=== PATIENT | male | born 1985 | race Caucasian/White ===

== ENCOUNTER 2017-01-02 16:40 | Emergency (ER) | payer OTHER ==
--- NOTE | 2017-01-02 16:56 | PDOC ---
History of Present Illness - General History Source: Patient Exam Limitations: No Limitations - History of Present Illness Initial Comments: 01/02/17 17:16 The patient is a 31 year old male, with no significant past medical history who presents to the emergency department with right elbow pain and abscess over elbow since Saturday. The patient reports going to his PCP, on Saturday, who have him antibiotics, Keflex. He reports his pain and the abscess only worsened since taking the Keflex. He notes having some drainage from his elbow yesterday that started spontaneously. He denies any limited ROM of his elbow. He denies any UE numbness and tingling. He denies any trauma or injury to his right elbow. He denies any previous cut/scratch to his elbow. He denies any recent fevers, chills, headache or dizziness. He denies any recent nausea, vomit, diarrhea or constipation. Allergies: NKA Past surgical history: None reported. Social History: Nonsmoker. Denies EtOH use and recreational drug use. Primary Care Physician: <Mekhi Mir - Last Filed: 01/02/17 17:38> - General History Source: Patient Exam Limitations: No Limitations <Juliet Vargas - Last Filed: 01/04/17 18:19> - General Chief Complaint: Wound Stated Complaint: RT ELBOW ABCESS SWELLING Time Seen by Provider: 01/02/17 16:42 Past History <Mekhi Mir - Last Filed: 01/02/17 17:38> <Juliet Vargas - Last Filed: 01/04/17 18:19> - Past Medical History Allergies/Adverse Reactions: Allergies Allergy/AdvReac Type Severity Reaction Status Date / Time shrimp Allergy Mild Rash Verified 01/02/17 17:45 Home Medications: Ambulatory Orders Clindamycin [Cleocin -] 300 mg PO Q6HPO #28 capsule 01/02/17 Review of Systems - Review of Systems Able to Perform ROS?: Yes Comments:: 01/02/17 17:16 GENERAL/CONSTITUTIONAL: No: fever, chills, weakness, loss of appetite. HEAD, EYES, EARS, NOSE AND THROAT: No: change in vision, ear pain, discharge, sore throat, throat swelling. CARDIOVASCULAR: No: chest pain, lightheadedness, palpitations, syncope RESPIRATORY: No: cough, shortness of breath, wheezing, hemoptysis, stridor. GASTROINTESTINAL: No: nausea, vomiting, diarrhea, abdominal cramping, rectal bleeding, constipation. GENITOURINARY: No: dysuria, hematuria, frequency, urgency, flank pain. MUSCULOSKELETAL: +right elbow abscess and pain. No: back pain, neck pain, joint pain, muscle swelling or pain SKIN : No: lesions, pallor, rash or easy bruising. NEUROLOGIC: No: headache, vertigo, paresthesias, weakness ENDOCRINE: No: unexplained weight gain or loss HEMATOLOGIC/LYMPHATIC: No: anemia, easy bleeding, swelling nodes. <Mekhi Mir - Last Filed: 01/02/17 17:38> *Physical Exam - Vital Signs Last Vital Signs Temp Pulse Resp BP Pulse Ox 98.7 F 81 20 150/78 98 01/02/17 16:41 01/02/17 16:41 01/02/17 16:41 01/02/17 16:41 01/02/17 16:41 - Physical Exam Comments: 01/02/17 17:17 GENERAL: The patient is in no acute distress. HEAD: Normal with no signs of trauma. EXTREMITIES: RIGHT elbow has 4 x 3 area of induration, warmth, and erythema. Small area that is spontaneously draining. FROM of right elbow. NEUROLOGICAL: Cranial nerves II through XII grossly intact. Normal speech. No focal neurological deficits. SKIN: Warm, Dry, normal turgor, no rashes or lesions noted. 01/02/17 17:38 <Mekhi Mir - Last Filed: 01/02/17 17:38> Procedures - Incision and Drainage I&D Site: Right: Arm Betadine cleansed: No (Chlorhexidine) Anesthesia: 2% Lidocaine w/ Epi Volume(ml): 1 Attempts: 1 Complications: none Dressing: Yes <Juliet Vargas - Last Filed: 01/04/17 18:19> Medical Decision Making - Medical Decision Making 01/02/17 16:55 A portion of this note was documented by scribe services under my direction. I have reviewed the details of the note, within reason, and agree with the documentation with the following case summary and management plan written by me. Nursing documentation reviewed and incorporated into medical decision making 01/02/17 17:30 This is an otherwise healthy 31-year-old male presented to emergency department with an area of cellulitis Patient states his symptoms began 5 days ago. He was seen by PMD 2 days ago. He was started on Keflex at that time. He denies fevers or chills. He states the area is tender. He is able to extend his elbow fully. On examination, medial right elbow with 4 x 3 cm area of erythema and induration skin opening noted with drainage Warm wound infiltrated with 1 cc of lidocaine opening in skin probed with wound expressed Swab taken Will: ask pt to continue warm compresses Start Clindamycin Follow up with LINDA or Savita 01/02/17 17:37 <Juliet Vargas - Last Filed: 01/04/17 18:19> *DC/Admit/Observation/Transfer - Attestations Scribe Attestion: 01/02/17 17:17 Documentation prepared by Mekhi Mir, acting as medical illustrator for Juliet Vargas MD. <Mekhi Mir - Last Filed: 01/02/17 17:38> - Discharge Dispostion Admit: No <Juliet Vargas - Last Filed: 01/04/17 18:19> Diagnosis at time of Disposition: Cellulitis and abscess of upper arm and forearm - Discharge Dispostion Disposition: HOME Condition at time of disposition: Stable - Prescriptions Prescriptions: Clindamycin [Cleocin -] 300 mg PO Q6HPO #28 capsule - Referrals Referrals: Viktoria Oseguera MD [Staff Physician] - Brett Barney MD [Staff Physician] - - Patient Instructions Printed Discharge Instructions: DI for Cellulitis -- Adult, DI for Skin Abscess Additional Instructions: Thank you for coming in to the ER today Please continue to apply warm compresses to the area Please discontinue the antibiotic you were taking Please start taking Clindamycin every 6 hours Monitor the area for redness which spreads outside the line which was marked in the ER, fever or chills
[2017-01-02 17:10] VITALS: BP 150/78; PULSE 81; TEMP 98.7; BMI 40.7
[2017-01-02] MEDS ORDERED: IBUPROFEN 600 MG TABLET (FP) PO ONE ×2 (17:53)
== END 2017-01-02 18:03 | disposition home or self-care (01) ==
LOC: FER 16:40
PROC: 0H9CXZZ Drainage of Left Upper Arm Skin, External Approach (ICD-10-PCS; principal; 2017-01-02)
DX: L03.114 Cellulitis of left upper limb (principal); L02.414 Cutaneous abscess of left upper limb
CPT/HCPCS: 10060; 87070; 87186; 87205; 99283-25